=== PATIENT | female | born 1995 | race Two or more races ===

== ENCOUNTER 2019-07-18 21:36 | Emergency (ER) | payer MEDICAID ==
[~2019-07-18] VITALS: Ht 149.9 cm; Wt 60.9 kg
[2019-07-18 21:56] VITALS: BP 162/93
== END 2019-07-18 22:33 | disposition home or self-care (01) ==
LOC: ER 21:39
DX: O98.813 Other maternal infectious and parasitic diseases complicating pregnancy, third trimester (principal); B01.9 Varicella without complication; Z3A.35 35 weeks gestation of pregnancy

== ENCOUNTER 2020-02-06 08:52 | Emergency (ER) | payer MEDICAID ==
[~2020-02-06] VITALS: Ht 149.9 cm; Wt 54.4 kg
[2020-02-06 09:00] VITALS: BP 132/70
[2020-02-06] MEDS ORDERED: LIDOCAINE 1% HCL (LOCAL ANESTH.) INJ 20ML MDV IJ ONE (09:45)
[2020-02-06] MEDS ORDERED: BACITRACIN TOP OINT 1 UD PKG TOP ONE (09:45)
[2020-02-06] MEDS ORDERED: TETANUS-DIPTH-ACEL PERTUSSIS 0.5ML SYR Tdap IM ONE (09:45)
== END 2020-02-06 10:37 | disposition home or self-care (01) ==
LOC: ER 08:52
DX: S81.012A Laceration without foreign body, left knee, initial encounter (principal); Z32.01 Encounter for pregnancy test, result positive; W01.0XXA Fall on same level from slipping, tripping and stumbling without subsequent striking against object, initial encounter; Y93.89 Activity, other specified; Y92.89 Other specified places as the place of occurrence of the external cause; Y99.8 Other external cause status
CPT/HCPCS: 12002; 90471; 90715; 99283; J2001

== ENCOUNTER 2020-02-19 08:54 | Emergency (ER) | payer MEDICAID ==
[~2020-02-19] VITALS: Ht 149.9 cm; Wt 51.7 kg
[2020-02-19 09:00] VITALS: BP 93/58
== END 2020-02-19 09:32 | disposition home or self-care (01) ==
LOC: ER 08:54
DX: S81.012D Laceration without foreign body, left knee, subsequent encounter (principal); X58.XXXD Exposure to other specified factors, subsequent encounter

== ENCOUNTER 2020-06-08 22:50 | Observation (INO) | payer MEDICAID ==
[2020-06-08] MEDS ORDERED: TERBUTALINE SULFATE 1 MG/ML 1ML VIAL SC ONE ×2 (23:15)
== END 2020-06-09 00:15 | disposition home or self-care (01) ==
LOC: LDRP 22:50
PROVIDERS: ADMIT Specialist; ATTEND Specialist
DX: O62.9 Abnormality of forces of labor, unspecified (principal); Z3A.36 36 weeks gestation of pregnancy; Z91.040 Latex allergy status
CPT/HCPCS: 59025; 81002; 96372; G0378; J3105

== ENCOUNTER → 2020-06-08 | Emergency (ER) | payer MEDICAID ==
[~2020-06-08] VITALS: Ht 149.9 cm; Wt 52.2 kg
[2020-06-08 22:41] VITALS: BP 107/71
== END | disposition still patient (30) ==
LOC: ER 22:40
DX: O26.893 Other specified pregnancy related conditions, third trimester (principal); R10.2 Pelvic and perineal pain; Z3A.36 36 weeks gestation of pregnancy